=== PATIENT | male | born 1960 | race African-American/Black ===

== ENCOUNTER 2021-09-11 09:06 | Inpatient (IN) | payer OTHER ==
[2021-09-11] MEDS ORDERED: NICOTINE 10 MG CARTRIDGE (INHALER) IH PRN (09:27)
[2021-09-11] MEDS ORDERED: BISMUTH SUBSALICYLATE 524 MG/30 ML PO PRN (09:27)
[2021-09-11] MEDS ORDERED: ONDANSETRON *ODT* 4 MG TABLET SL PRN (09:27)
[2021-09-11] MEDS ORDERED: MAGNESIUM HYDROX 2400MG/30ML ORAL SUSPENSION 30 ML CUP PO PRN (09:27)
[2021-09-11] MEDS ORDERED: MENTHOL/PHENOL 1 EACH UD MM PRN (09:27)
[2021-09-11] MEDS ORDERED: IBUPROFEN 400 MG TABLET (FP) PO PRN (09:27)
[2021-09-11] MEDS ORDERED: METHOCARBAMOL 500 MG TABLET PO PRN (09:27)
[2021-09-11] MEDS ORDERED: ACETAMINOPHEN 325 MG TABLET (FP) PO PRN ×2 (09:27)
[2021-09-11] MEDS ORDERED: MAGNESIUM CITRATE 300 ML BOTTLE PO PRN (09:27)
[2021-09-11] MEDS ORDERED: MAG HYDROX/AL HYDROX/SIMETH 30 ML UNIT-DOSE CUP PO PRN (09:27)
[2021-09-11 09:45] VITALS: BMI 17.0
[2021-09-11] MEDS ORDERED: TRIAMCINOLONE ACETONIDE TP PRN (09:57)
[2021-09-11] MEDS ORDERED: AZITHROMYCIN 600 MG TABLET PO SCH (10:30)
[2021-09-11] MEDS ORDERED: EMTRICITABINE 200MG/TENOFOVIR 300MG PO SCH (11:00)
[2021-09-11] MEDS ORDERED: DARUNAVIR ETHANOLATE 800 MG TAB PO SCH (11:00)
[2021-09-11] MEDS ORDERED: RITONAVIR 100 MG TABLET PO SCH (11:00)
[2021-09-11] MEDS: SULFAMETHOXAZOLE/TRIMETHOPRIM 800MG/160MG D.S. TABLET PO SCH (12:19)
[2021-09-11] MEDS: hydrOXYzine PAMOATE 25 MG CAPSULE (FP) PO SCH ×4 (12:19→22:11)
[2021-09-11] MEDS: BICTEGRAV/EMTRICIT/TENOFOV (BIKTARVY) 50-200-25 MG TABLET PO SCH (12:19)
[2021-09-11] MEDS: NICOTINE 14 MG/24 HOURS TOPICAL PATCH TD SCH (12:27)
[2021-09-11] MEDS: PRENATAL VITAMINS W/ FOLIC ACID TABLET (FP) PO SCH (12:54)
[2021-09-11 14:33] LABS: HEMATOCRIT 38.6 % (35.4-49); HEMOGLOBIN 13.1 GM/dL (11.7-16.9); MCH 33.2 pg (25.7-33.7); MCHC 33.8 g/dl (32.0-35.9); MEAN CELL VOLUME 98.2 fl (80-96); MEAN PLT VOLUME 8.2 fl (7.5-11.1); PLATELET COUNT 156 10^3/uL (134-434); RBC 3.93 M/mm3 (4.00-5.60); RDW 15.1 % (11.9-15.9); WHITE BLOOD COUNT 2.9 K/mm3 (4.0-10.0)
[2021-09-11 14:34] LABS: ALBUMIN 3.5 g/dl (3.4-5.0); BLOOD UREA NITROGEN 5.9 mg/dL (7-18); CALCIUM 9.6 mg/dL (8.5-10.1)
[2021-09-11 14:37] LABS: CREATININE 0.6 mg/dL (0.55-1.3)
[2021-09-11 14:39] LABS: TOT PROT 7.6 g/dl (6.4-8.2)
[2021-09-11] MEDS: BETAMETHASONE DIPROPIONATE TP SCH ×2 (15:51→22:09)
[2021-09-11] MEDS: MELATONIN 5 MG TABLETS PO SCH (22:10)
[2021-09-11] MEDS: THIAMINE HCL 100 MG TABLET (FP) PO SCH (22:11)
[2021-09-12] MEDS: hydrOXYzine PAMOATE 25 MG CAPSULE (FP) PO SCH ×5 (06:39→22:46)
[2021-09-12] MEDS: BICTEGRAV/EMTRICIT/TENOFOV (BIKTARVY) 50-200-25 MG TABLET PO SCH (08:56)
[2021-09-12] MEDS: BETAMETHASONE DIPROPIONATE TP SCH ×2 (11:05→22:45)
[2021-09-12] MEDS: NICOTINE 14 MG/24 HOURS TOPICAL PATCH TD SCH (11:05)
[2021-09-12] MEDS: SULFAMETHOXAZOLE/TRIMETHOPRIM 800MG/160MG D.S. TABLET PO SCH (11:05)
[2021-09-12] MEDS: PRENATAL VITAMINS W/ FOLIC ACID TABLET (FP) PO SCH (11:06)
[2021-09-12] MEDS ORDERED: POTASSIUM CHLORIDE TABS 20 MEQ TABLET.ER (FP) PO ONE (15:00)
[2021-09-12] MEDS: MELATONIN 5 MG TABLETS PO SCH (22:45)
[2021-09-12] MEDS: THIAMINE HCL 100 MG TABLET (FP) PO SCH (22:46)
[2021-09-13] MEDS: hydrOXYzine PAMOATE 25 MG CAPSULE (FP) PO SCH ×3 (06:27→13:52)
[2021-09-13] MEDS: BICTEGRAV/EMTRICIT/TENOFOV (BIKTARVY) 50-200-25 MG TABLET PO SCH (10:31)
[2021-09-13] MEDS: SULFAMETHOXAZOLE/TRIMETHOPRIM 800MG/160MG D.S. TABLET PO SCH (10:31)
[2021-09-13] MEDS: NICOTINE 14 MG/24 HOURS TOPICAL PATCH TD SCH (10:31)
[2021-09-13] MEDS: PRENATAL VITAMINS W/ FOLIC ACID TABLET (FP) PO SCH (10:31)
[2021-09-13] MEDS: BETAMETHASONE DIPROPIONATE TP SCH (10:32)
[2021-09-13 13:57] VITALS: TEMP 97.7
[2021-09-13 17:16] VITALS: BP 133/86; PULSE 77
== END 2021-09-13 17:45 | disposition home or self-care (01) | DRG 775 ==
LOC: YASAS 09:06 → Y6N 11:53
PROVIDERS: ADMIT Allergy & Immunology; ATTEND Allergy & Immunology
PROC: HZ2ZZZZ Detoxification Services for Substance Abuse Treatment (ICD-10-PCS; principal; 2021-09-11)
DX: F10.230 Alcohol dependence with withdrawal, uncomplicated (principal); F13.230 Sedative, hypnotic or anxiolytic dependence with withdrawal, uncomplicated; F12.20 Cannabis dependence, uncomplicated; F17.213 Nicotine dependence, cigarettes, with withdrawal; Z21 Asymptomatic human immunodeficiency virus [HIV] infection status; E87.6 Hypokalemia; L30.8 Other specified dermatitis; B36.9 Superficial mycosis, unspecified; R63.4 Abnormal weight loss; Z68.1 Body mass index [BMI] 19.9 or less, adult; Z86.11 Personal history of tuberculosis; Z99.89 Dependence on other enabling machines and devices
CPT/HCPCS: 36415; 80053; 84132; 85027; 86593; 86780; C9803; U0003; U0005

== ENCOUNTER 2021-11-10 11:08 | Inpatient (IN) | payer OTHER ==
[2021-11-10] MEDS ORDERED: METHOCARBAMOL 500 MG TABLET PO PRN (12:27)
[2021-11-10] MEDS ORDERED: LORazepam 1 MG TABLET PO PRN (12:27)
[2021-11-10] MEDS ORDERED: LOPERAMIDE HCL 2 MG CAPSULE PO PRN (12:27)
[2021-11-10] MEDS ORDERED: MENTHOL/PHENOL 1 EACH UD MM PRN (12:27)
[2021-11-10] MEDS ORDERED: IBUPROFEN 400 MG TABLET (FP) PO PRN (12:27)
[2021-11-10] MEDS ORDERED: MAGNESIUM CITRATE 300 ML BOTTLE PO PRN (12:27)
[2021-11-10] MEDS ORDERED: ACETAMINOPHEN 325 MG TABLET (FP) PO PRN ×2 (12:27)
[2021-11-10] MEDS ORDERED: BISMUTH SUBSALICYLATE 524 MG/30 ML PO PRN (12:27)
[2021-11-10] MEDS ORDERED: NICOTINE 10 MG CARTRIDGE (INHALER) IH PRN (12:27)
[2021-11-10] MEDS ORDERED: MAGNESIUM HYDROX 2400MG/30ML ORAL SUSPENSION 30 ML CUP PO PRN (12:27)
[2021-11-10] MEDS ORDERED: ONDANSETRON *ODT* 4 MG TABLET SL PRN (12:27)
[2021-11-10] MEDS ORDERED: MAG HYDROX/AL HYDROX/SIMETH 30 ML UNIT-DOSE CUP PO PRN (12:27)
[2021-11-10 14:04] VITALS: BMI 17.2
[2021-11-10 17:59] LABS: HEMATOCRIT 35.8 % (35.4-49); HEMOGLOBIN 11.9 GM/dL (11.7-16.9); MCH 31.6 pg (25.7-33.7); MCHC 33.2 g/dl (32.0-35.9); MEAN CELL VOLUME 95.1 fl (80-96); MEAN PLT VOLUME 8.2 fl (7.5-11.1); PLATELET COUNT 173 10^3/uL (134-434); RBC 3.76 M/mm3 (4.00-5.60); RDW 14.8 % (11.9-15.9)
[2021-11-10 18:03] LABS: CALCIUM 9.4 mg/dL (8.5-10.1)
[2021-11-10 18:04] LABS: ALBUMIN 3.4 g/dl (3.4-5.0); BLOOD UREA NITROGEN 7.7 mg/dL (7-18)
[2021-11-10 18:07] LABS: CREATININE 0.5 mg/dL (0.55-1.3)
[2021-11-10 18:08] LABS: BILIRUBIN,TOTAL 0.5 mg/dL (0.2-1)
[2021-11-10 18:09] LABS: TOT PROT 7.7 g/dl (6.4-8.2)
[2021-11-10] MEDS ORDERED: guaiFENesin/D-METHORPHAN HB 10 ML UNIT-DOSE CUPS PO PRN (18:20)
[2021-11-10] MEDS: LORazepam 2 MG TABLET PO SCH ×2 (18:21→22:51)
[2021-11-10] MEDS: hydrOXYzine PAMOATE 25 MG CAPSULE (FP) PO SCH ×3 (18:22→23:03)
[2021-11-10] MEDS: NICOTINE 14 MG/24 HOURS TOPICAL PATCH TD SCH (18:25)
[2021-11-10] MEDS: PRENATAL VITAMINS W/ FOLIC ACID TABLET (FP) PO SCH (18:25)
[2021-11-10] MEDS: ZINC SULFATE 220 MG CAPSULE (FP) PO SCH (22:59)
[2021-11-10] MEDS: MELATONIN 5 MG TABLETS PO SCH (23:03)
[2021-11-10] MEDS: THIAMINE HCL 100 MG TABLET (FP) PO SCH (23:04)
[2021-11-11] MEDS: hydrOXYzine PAMOATE 25 MG CAPSULE (FP) PO SCH ×5 (06:54→23:04)
[2021-11-11] MEDS: LORazepam 2 MG TABLET PO SCH ×4 (06:54→23:02)
[2021-11-11] MEDS: ZINC SULFATE 220 MG CAPSULE (FP) PO SCH (10:52)
[2021-11-11] MEDS: PRENATAL VITAMINS W/ FOLIC ACID TABLET (FP) PO SCH (10:52)
[2021-11-11] MEDS: NICOTINE 14 MG/24 HOURS TOPICAL PATCH TD SCH (10:53)
[2021-11-11] MEDS ORDERED: P-EPHED 60MG/TRIPROLIDI 2.5MG TABLET PO PRN (18:35)
[2021-11-11] MEDS: guaiFENesin 200 MG/10 ML 10 ML UNIT-DOSE CUPS PO PRN ×2 (18:57→23:04)
[2021-11-11] MEDS: MELATONIN 5 MG TABLETS PO SCH (23:03)
[2021-11-11] MEDS: THIAMINE HCL 100 MG TABLET (FP) PO SCH (23:04)
[2021-11-12] MEDS: LORazepam 1 MG TABLET PO SCH ×2 (06:45→10:59)
[2021-11-12] MEDS: hydrOXYzine PAMOATE 25 MG CAPSULE (FP) PO SCH ×3 (06:45→15:11)
[2021-11-12 08:06] LABS: SARS-CoV-2 NAA Detected (Not Detected)
[2021-11-12 08:37] VITALS: TEMP 98.3
[2021-11-12] MEDS: ZINC SULFATE 220 MG CAPSULE (FP) PO SCH (10:56)
[2021-11-12] MEDS: PRENATAL VITAMINS W/ FOLIC ACID TABLET (FP) PO SCH (10:56)
[2021-11-12] MEDS: NICOTINE 14 MG/24 HOURS TOPICAL PATCH TD SCH (10:58)
[2021-11-12 13:21] VITALS: BP 124/68; PULSE 70
[2021-11-13] MEDS ORDERED: LORazepam 0.5 MG TABLET PO PRN
[2021-11-13] MEDS ORDERED: LORazepam 0.5 MG TABLET PO SCH (05:00)
[2021-11-14] MEDS ORDERED: LORazepam 0.5 MG TABLET PO ONE (05:00)
== END 2021-11-12 16:45 | disposition left against medical advice (07) | DRG 770 ==
LOC: YASAS 11:08 → Y3N 14:33
PROVIDERS: ADMIT Allergy & Immunology; ATTEND Allergy & Immunology
PROC: HZ2ZZZZ Detoxification Services for Substance Abuse Treatment (ICD-10-PCS; principal; 2021-11-12)
DX: F10.230 Alcohol dependence with withdrawal, uncomplicated (principal); F12.20 Cannabis dependence, uncomplicated; F17.210 Nicotine dependence, cigarettes, uncomplicated; F19.24 Other psychoactive substance dependence with psychoactive substance-induced mood disorder; U07.1 COVID-19; Z21 Asymptomatic human immunodeficiency virus [HIV] infection status
CPT/HCPCS: 36415; 80053; 82947; 82962; 85027; 86593; 86780; C9803-CS; U0003; U0005

== ENCOUNTER 2021-12-08 12:49 | Inpatient (IN) | payer OTHER ==
[2021-12-08] MEDS ORDERED: MAG HYDROX/AL HYDROX/SIMETH 30 ML UNIT-DOSE CUP PO PRN (13:20)
[2021-12-08] MEDS ORDERED: LOPERAMIDE HCL 2 MG CAPSULE PO PRN (13:20)
[2021-12-08] MEDS ORDERED: ACETAMINOPHEN 325 MG TABLET (FP) PO PRN ×2 (13:20)
[2021-12-08] MEDS ORDERED: BISMUTH SUBSALICYLATE 262 MG/15 ML BTL PO PRN (13:20)
[2021-12-08] MEDS ORDERED: DICYCLOMINE HCL 10 MG CAPSULE PO PRN (13:20)
[2021-12-08] MEDS ORDERED: BENZOCAINE/MENTHOL (CHLORASEPTIC ) LOZENGE MM PRN (13:20)
[2021-12-08] MEDS ORDERED: METHOCARBAMOL 500 MG TABLET PO PRN (13:20)
[2021-12-08] MEDS ORDERED: NICOTINE 10 MG CARTRIDGE (INHALER) IH PRN (13:20)
[2021-12-08] MEDS ORDERED: MAGNESIUM CITRATE 300 ML BOTTLE PO PRN (13:20)
[2021-12-08] MEDS ORDERED: IBUPROFEN 400 MG TABLET (FP) PO PRN (13:20)
[2021-12-08] MEDS ORDERED: diazePAM 5 MG TABLET PO PRN (13:20)
[2021-12-08] MEDS ORDERED: ONDANSETRON *ODT* 4 MG TABLET SL PRN (13:20)
[2021-12-08] MEDS ORDERED: MAGNESIUM HYDROX 2400MG/30ML ORAL SUSPENSION 30 ML CUP PO PRN (13:20)
[2021-12-08 14:10] VITALS: BMI 17.2
[2021-12-08 17:09] LABS: ALBUMIN 3.3 g/dl (3.4-5.0); BLOOD UREA NITROGEN 10.1 mg/dL (7-18); CALCIUM 8.9 mg/dL (8.5-10.1)
[2021-12-08 17:12] LABS: CREATININE 0.6 mg/dL (0.55-1.3); HEMATOCRIT 37.7 % (35.4-49); HEMOGLOBIN 12.4 GM/dL (11.7-16.9); MCH 31.5 pg (25.7-33.7); MEAN CELL VOLUME 95.6 fl (80-96); MEAN PLT VOLUME 8.5 fl (7.5-11.1); PLATELET COUNT 200 10^3/uL (134-434); RBC 3.94 M/mm3 (4.00-5.60); RDW 16.3 % (11.9-15.9); WHITE BLOOD COUNT 2.2 K/mm3 (4.0-10.0)
[2021-12-08 17:14] LABS: BILIRUBIN,TOTAL 0.6 mg/dL (0.2-1); TOT PROT 7.8 g/dl (6.4-8.2)
[2021-12-08] MEDS: diazePAM 5 MG TABLET PO SCH ×2 (20:36→22:32)
[2021-12-08] MEDS: PRENATAL VITAMINS W/ FOLIC ACID TABLET (FP) PO SCH (20:36)
[2021-12-08] MEDS: NICOTINE 14 MG/24 HOURS TOPICAL PATCH TD SCH (20:36)
[2021-12-08] MEDS: hydrOXYzine PAMOATE 25 MG CAPSULE (FP) PO SCH ×2 (20:37→22:31)
[2021-12-08] MEDS: MELATONIN 5 MG TABLETS PO SCH (22:31)
[2021-12-08] MEDS: THIAMINE HCL 100 MG TABLET (FP) PO SCH (22:33)
[2021-12-09] MEDS: diazePAM 5 MG TABLET PO SCH ×4 (06:33→22:49)
[2021-12-09] MEDS: hydrOXYzine PAMOATE 25 MG CAPSULE (FP) PO SCH ×5 (06:33→22:49)
[2021-12-09] MEDS: PRENATAL VITAMINS W/ FOLIC ACID TABLET (FP) PO SCH (12:19)
[2021-12-09] MEDS: NICOTINE 14 MG/24 HOURS TOPICAL PATCH TD SCH (12:19)
[2021-12-09] MEDS: MELATONIN 5 MG TABLETS PO SCH (22:49)
[2021-12-09] MEDS: THIAMINE HCL 100 MG TABLET (FP) PO SCH (22:49)
[2021-12-09] MEDS: BACITRACIN 0.9 GM PACKET TP SCH (23:08)
[2021-12-10] MEDS: diazePAM 5 MG TABLET PO SCH ×3 (07:04→22:56)
[2021-12-10] MEDS: hydrOXYzine PAMOATE 25 MG CAPSULE (FP) PO SCH ×6 (07:05→22:56)
[2021-12-10] MEDS: NICOTINE 14 MG/24 HOURS TOPICAL PATCH TD SCH (11:05)
[2021-12-10] MEDS: BACITRACIN 0.9 GM PACKET TP SCH ×3 (11:05→22:56)
[2021-12-10] MEDS: PRENATAL VITAMINS W/ FOLIC ACID TABLET (FP) PO SCH ×2 (11:05→11:14)
[2021-12-10 16:08] LABS: SARS-CoV-2 NAA Detected (Not Detected)
[2021-12-10] MEDS: MELATONIN 5 MG TABLETS PO SCH (22:56)
[2021-12-10] MEDS: THIAMINE HCL 100 MG TABLET (FP) PO SCH (22:56)
[2021-12-11] MEDS: diazePAM 5 MG TABLET PO SCH ×2 (08:39→17:43)
[2021-12-11] MEDS: hydrOXYzine PAMOATE 25 MG CAPSULE (FP) PO SCH ×5 (08:39→22:32)
[2021-12-11] MEDS: NICOTINE 14 MG/24 HOURS TOPICAL PATCH TD SCH (11:02)
[2021-12-11] MEDS: BACITRACIN 0.9 GM PACKET TP SCH ×2 (11:02→22:32)
[2021-12-11] MEDS: PRENATAL VITAMINS W/ FOLIC ACID TABLET (FP) PO SCH (11:03)
[2021-12-11] MEDS: MELATONIN 5 MG TABLETS PO SCH (22:32)
[2021-12-11] MEDS: THIAMINE HCL 100 MG TABLET (FP) PO SCH (22:32)
[2021-12-12] MEDS ORDERED: diazePAM 5 MG TABLET PO ONE (06:00)
[2021-12-12] MEDS: hydrOXYzine PAMOATE 25 MG CAPSULE (FP) PO SCH ×3 (07:05→15:03)
[2021-12-12 09:12] VITALS: BP 106/71; PULSE 94; TEMP 97.3
[2021-12-12] MEDS: BACITRACIN 0.9 GM PACKET TP SCH (12:04)
[2021-12-12] MEDS: NICOTINE 14 MG/24 HOURS TOPICAL PATCH TD SCH (12:05)
[2021-12-12] MEDS: PRENATAL VITAMINS W/ FOLIC ACID TABLET (FP) PO SCH (12:05)
== END 2021-12-12 15:00 | disposition home or self-care (01) | DRG 775 ==
LOC: YASAS 12:49 → Y3N 16:56
PROVIDERS: ADMIT Allergy & Immunology; ATTEND Allergy & Immunology
PROC: HZ2ZZZZ Detoxification Services for Substance Abuse Treatment (ICD-10-PCS; principal; 2021-12-08)
DX: F10.230 Alcohol dependence with withdrawal, uncomplicated (principal); F13.20 Sedative, hypnotic or anxiolytic dependence, uncomplicated; F12.20 Cannabis dependence, uncomplicated; F17.210 Nicotine dependence, cigarettes, uncomplicated; U07.1 COVID-19; Z21 Asymptomatic human immunodeficiency virus [HIV] infection status; Z86.19 Personal history of other infectious and parasitic diseases
CPT/HCPCS: 36415; 80053; 85027; 86593; 86780; 87811; C9803-CS; U0003; U0005

== ENCOUNTER 2022-03-15 10:00 | Inpatient (IN) | payer OTHER ==
[2022-03-15 11:25] VITALS: BMI 19.5
[2022-03-15] MEDS ORDERED: BENZOCAINE/MENTHOL (CHLORASEPTIC ) LOZENGE MM PRN (12:25)
[2022-03-15] MEDS ORDERED: MAGNESIUM CITRATE 300 ML BOTTLE PO PRN (12:25)
[2022-03-15] MEDS ORDERED: diazePAM 5 MG TABLET PO PRN (12:25)
[2022-03-15] MEDS ORDERED: METHOCARBAMOL 500 MG TABLET PO PRN (12:25)
[2022-03-15] MEDS ORDERED: ONDANSETRON *ODT* 4 MG TABLET SL PRN (12:25)
[2022-03-15] MEDS ORDERED: IBUPROFEN 600 MG TABLET (FP) PO PRN (12:25)
[2022-03-15] MEDS ORDERED: MAG HYDROX/AL HYDROX/SIMETH 30 ML UNIT-DOSE CUP PO PRN (12:25)
[2022-03-15] MEDS ORDERED: NICOTINE 10 MG CARTRIDGE (INHALER) IH PRN (12:25)
[2022-03-15] MEDS ORDERED: BISMUTH SUBSALICYLATE 262 MG/15 ML BTL PO PRN (12:25)
[2022-03-15] MEDS ORDERED: DICYCLOMINE HCL 10 MG CAPSULE PO PRN (12:25)
[2022-03-15] MEDS ORDERED: MAGNESIUM HYDROX 2400MG/30ML ORAL SUSPENSION 30 ML CUP PO PRN (12:25)
[2022-03-15] MEDS ORDERED: LOPERAMIDE HCL 2 MG CAPSULE PO PRN (12:25)
[2022-03-15] MEDS ORDERED: ACETAMINOPHEN 325 MG TABLET (FP) PO PRN ×2 (12:25)
[2022-03-15] MEDS ORDERED: IBUPROFEN 400 MG TABLET (FP) PO PRN (12:25)
[2022-03-15] MEDS: PRENATAL VITAMINS W/ FOLIC ACID TABLET (FP) PO SCH (14:03)
[2022-03-15] MEDS: NICOTINE 14 MG/24 HOURS TOPICAL PATCH TD SCH (14:03)
[2022-03-15] MEDS: hydrOXYzine PAMOATE 25 MG CAPSULE (FP) PO SCH ×3 (14:08→23:13)
[2022-03-15 17:05] LABS: HEMATOCRIT 36.9 % (35.4-49); HEMOGLOBIN 12.2 GM/dL (11.7-16.9); MCH 32.6 pg (25.7-33.7); MCHC 33.2 g/dl (32.0-35.9); MEAN CELL VOLUME 98.2 fl (80-96); PLATELET COUNT 188 10^3/uL (134-434); RBC 3.75 M/mm3 (4.00-5.60); RDW 16.8 % (11.9-15.9); WHITE BLOOD COUNT 3.7 K/mm3 (4.0-10.0)
[2022-03-15 17:09] LABS: BLOOD UREA NITROGEN 9.6 mg/dL (7-18); CALCIUM 9.9 mg/dL (8.5-10.1)
[2022-03-15 17:10] LABS: ALBUMIN 3.5 g/dl (3.4-5.0)
[2022-03-15 17:13] LABS: CREATININE 0.7 mg/dL (0.55-1.3)
[2022-03-15 17:14] LABS: BILIRUBIN,TOTAL 0.5 mg/dL (0.2-1); TOT PROT 7.6 g/dl (6.4-8.2)
[2022-03-15] MEDS: diazePAM 5 MG TABLET PO SCH ×2 (17:43→23:13)
[2022-03-15] MEDS: MELATONIN 5 MG TABLETS PO SCH (23:13)
[2022-03-15] MEDS: THIAMINE HCL 100 MG TABLET (FP) PO SCH (23:14)
[2022-03-16] MEDS: diazePAM 5 MG TABLET PO SCH ×4 (05:41→23:32)
[2022-03-16] MEDS: hydrOXYzine PAMOATE 25 MG CAPSULE (FP) PO SCH ×5 (05:41→23:33)
[2022-03-16] MEDS: NICOTINE 14 MG/24 HOURS TOPICAL PATCH TD SCH (10:30)
[2022-03-16] MEDS: PRENATAL VITAMINS W/ FOLIC ACID TABLET (FP) PO SCH (10:30)
[2022-03-16] MEDS: MELATONIN 5 MG TABLETS PO SCH (23:32)
[2022-03-16] MEDS: THIAMINE HCL 100 MG TABLET (FP) PO SCH (23:33)
[2022-03-17] MEDS: hydrOXYzine PAMOATE 25 MG CAPSULE (FP) PO SCH ×4 (06:16→21:22)
[2022-03-17] MEDS: diazePAM 5 MG TABLET PO SCH ×2 (06:16→13:45)
[2022-03-17] MEDS: NICOTINE 14 MG/24 HOURS TOPICAL PATCH TD SCH (10:32)
[2022-03-17] MEDS: PRENATAL VITAMINS W/ FOLIC ACID TABLET (FP) PO SCH (10:32)
[2022-03-18] MEDS: MELATONIN 5 MG TABLETS PO SCH ×2 (00:22→22:28)
[2022-03-18] MEDS: THIAMINE HCL 100 MG TABLET (FP) PO SCH ×2 (00:23→22:28)
[2022-03-18] MEDS: diazePAM 5 MG TABLET PO SCH ×3 (00:23→17:31)
[2022-03-18] MEDS: hydrOXYzine PAMOATE 25 MG CAPSULE (FP) PO SCH ×6 (00:23→22:28)
[2022-03-18] MEDS: PRENATAL VITAMINS W/ FOLIC ACID TABLET (FP) PO SCH (10:27)
[2022-03-18] MEDS: NICOTINE 14 MG/24 HOURS TOPICAL PATCH TD SCH (10:29)
[2022-03-18 21:37] VITALS: RESP 17
[2022-03-19] MEDS ORDERED: diazePAM 5 MG TABLET PO ONE (06:00)
[2022-03-19] MEDS: hydrOXYzine PAMOATE 25 MG CAPSULE (FP) PO SCH ×2 (06:11→10:26)
[2022-03-19 09:11] VITALS: TEMP 97.1
[2022-03-19] MEDS: PRENATAL VITAMINS W/ FOLIC ACID TABLET (FP) PO SCH (10:26)
[2022-03-19] MEDS: NICOTINE 14 MG/24 HOURS TOPICAL PATCH TD SCH (10:26)
[2022-03-19 12:59] VITALS: BP 92/65; PULSE 73
== END 2022-03-19 13:00 | disposition home or self-care (01) | DRG 772 ==
LOC: YASAS 10:00 → Y6N 13:33
PROVIDERS: ADMIT Allergy & Immunology; ATTEND Surgery
PROC: HZ42ZZZ Group Counseling for Substance Abuse Treatment, Cognitive-Behavioral (ICD-10-PCS; principal; 2022-03-15)
DX: F10.20 Alcohol dependence, uncomplicated (principal); F12.20 Cannabis dependence, uncomplicated; F17.210 Nicotine dependence, cigarettes, uncomplicated; Z21 Asymptomatic human immunodeficiency virus [HIV] infection status; R26.2 Difficulty in walking, not elsewhere classified; Z99.89 Dependence on other enabling machines and devices; Z86.19 Personal history of other infectious and parasitic diseases
CPT/HCPCS: 36415; 80053; 85027; 86593; 86780; 87811; C9803-CS; U0003; U0005

== ENCOUNTER 2022-03-19 13:17 | Inpatient (IN) | payer OTHER ==
[2022-03-19 13:38] VITALS: RESP 18
[2022-03-19] MEDS ORDERED: NICOTINE 7 MG/24 HOURS TOPICAL PATCH TD PRN (13:52)
[2022-03-19] MEDS ORDERED: guaiFENesin 200 MG/10 ML 10 ML UNIT-DOSE CUPS PO PRN (13:52)
[2022-03-19] MEDS ORDERED: hydrOXYzine PAMOATE 25 MG CAPSULE (FP) PO PRN (13:52)
[2022-03-19] MEDS ORDERED: MAGNESIUM CITRATE 300 ML BOTTLE PO PRN (13:52)
[2022-03-19] MEDS ORDERED: ACETAMINOPHEN 325 MG TABLET (FP) PO PRN (13:52)
[2022-03-19] MEDS ORDERED: NICOTINE 10 MG CARTRIDGE (INHALER) IH PRN (13:52)
[2022-03-19] MEDS ORDERED: MAG HYDROX/AL HYDROX/SIMETH 30 ML UNIT-DOSE CUP PO PRN (13:52)
[2022-03-19] MEDS ORDERED: BENZOCAINE/MENTHOL (CHLORASEPTIC ) LOZENGE MM PRN (13:52)
[2022-03-19] MEDS ORDERED: MAGNESIUM HYDROX 2400MG/30ML ORAL SUSPENSION 30 ML CUP PO PRN (13:52)
[2022-03-19] MEDS ORDERED: P-EPHED 60MG/TRIPROLIDI 2.5MG TABLET PO PRN (13:52)
[2022-03-19] MEDS ORDERED: IBUPROFEN 400 MG TABLET (FP) PO PRN (13:52)
[2022-03-19] MEDS ORDERED: LOPERAMIDE HCL 2 MG CAPSULE PO PRN (13:52)
[2022-03-19] MEDS ORDERED: NICOTINE POLACRILEX 2 MG GUM BUC PRN (13:52)
[2022-03-19] MEDS ORDERED: THIAMINE HCL 100 MG TABLET (FP) PO SCH (22:00)
[2022-03-19] MEDS ORDERED: MELATONIN 5 MG TABLETS PO SCH (22:00)
[2022-03-20 06:58] VITALS: BP 114/76; PULSE 81; TEMP 97.5
[2022-03-20] MEDS ORDERED: PRENATAL VITAMINS W/ FOLIC ACID TABLET (FP) PO SCH (10:00)
== END 2022-03-20 10:23 | disposition left against medical advice (07) | DRG 770 ==
LOC: YASAS 13:17 → Y3W 13:18
PROVIDERS: ADMIT Allergy & Immunology; ATTEND Psychiatry & Neurology Pain Medicine
PROC: HZ42ZZZ Group Counseling for Substance Abuse Treatment, Cognitive-Behavioral (ICD-10-PCS; principal; 2022-03-19)
DX: F10.20 Alcohol dependence, uncomplicated (principal); F12.20 Cannabis dependence, uncomplicated; F17.210 Nicotine dependence, cigarettes, uncomplicated; Z21 Asymptomatic human immunodeficiency virus [HIV] infection status; R26.2 Difficulty in walking, not elsewhere classified; Z99.89 Dependence on other enabling machines and devices; Z86.19 Personal history of other infectious and parasitic diseases

== ENCOUNTER 2022-03-31 09:40 | Inpatient (IN) | payer OTHER ==
[2022-03-31 10:14] VITALS: BMI 18.4
[2022-03-31] MEDS ORDERED: NICOTINE 10 MG CARTRIDGE (INHALER) IH PRN (11:12)
[2022-03-31] MEDS ORDERED: MAGNESIUM HYDROX 2400MG/30ML ORAL SUSPENSION 30 ML CUP PO PRN (11:12)
[2022-03-31] MEDS ORDERED: chlordiazePOXIDE HCL 25 MG CAPSULE PO PRN (11:12)
[2022-03-31] MEDS ORDERED: IBUPROFEN 600 MG TABLET (FP) PO PRN (11:12)
[2022-03-31] MEDS ORDERED: BENZOCAINE/MENTHOL (CHLORASEPTIC ) LOZENGE MM PRN (11:12)
[2022-03-31] MEDS ORDERED: MAGNESIUM CITRATE 300 ML BOTTLE PO PRN (11:12)
[2022-03-31] MEDS ORDERED: DICYCLOMINE HCL 10 MG CAPSULE PO PRN (11:12)
[2022-03-31] MEDS ORDERED: METHOCARBAMOL 500 MG TABLET PO PRN (11:12)
[2022-03-31] MEDS ORDERED: ACETAMINOPHEN 325 MG TABLET (FP) PO PRN ×2 (11:12)
[2022-03-31] MEDS ORDERED: MAG HYDROX/AL HYDROX/SIMETH 30 ML UNIT-DOSE CUP PO PRN (11:12)
[2022-03-31] MEDS ORDERED: LOPERAMIDE HCL 2 MG CAPSULE PO PRN (11:12)
[2022-03-31] MEDS ORDERED: ONDANSETRON *ODT* 4 MG TABLET SL PRN (11:12)
[2022-03-31] MEDS ORDERED: BISMUTH SUBSALICYLATE 262 MG/15 ML BTL PO PRN (11:12)
[2022-03-31] MEDS ORDERED: IBUPROFEN 400 MG TABLET (FP) PO PRN (11:12)
[2022-03-31] MEDS: chlordiazePOXIDE HCL 25 MG CAPSULE PO SCH ×3 (12:38→23:22)
[2022-03-31] MEDS: NICOTINE 14 MG/24 HOURS TOPICAL PATCH TD SCH (12:38)
[2022-03-31] MEDS: PRENATAL VITAMINS W/ FOLIC ACID TABLET (FP) PO SCH (12:38)
[2022-03-31] MEDS: hydrOXYzine PAMOATE 25 MG CAPSULE (FP) PO SCH ×3 (14:00→23:23)
[2022-03-31 15:09] LABS: HEMATOCRIT 36.5 % (35.4-49); HEMOGLOBIN 12.3 GM/dL (11.7-16.9); MCHC 33.7 g/dl (32.0-35.9); MEAN CELL VOLUME 94.8 fl (80-96); MEAN PLT VOLUME 8.1 fl (7.5-11.1); PLATELET COUNT 263 10^3/uL (134-434); RBC 3.85 M/mm3 (4.00-5.60); RDW 16.5 % (11.9-15.9)
[2022-03-31 15:34] LABS: ALBUMIN 3.5 g/dl (3.4-5.0); BLOOD UREA NITROGEN 10.7 mg/dL (7-18); CALCIUM 9.8 mg/dL (8.5-10.1)
[2022-03-31 15:38] LABS: CREATININE 0.7 mg/dL (0.55-1.3)
[2022-03-31 15:39] LABS: BILIRUBIN,TOTAL 0.7 mg/dL (0.2-1); TOT PROT 7.8 g/dl (6.4-8.2)
[2022-03-31] MEDS: MELATONIN 5 MG TABLETS PO SCH (23:22)
[2022-03-31] MEDS: THIAMINE HCL 100 MG TABLET (FP) PO SCH (23:23)
[2022-04-01] MEDS: chlordiazePOXIDE HCL 25 MG CAPSULE PO SCH ×4 (06:18→22:46)
[2022-04-01] MEDS: hydrOXYzine PAMOATE 25 MG CAPSULE (FP) PO SCH ×5 (06:18→22:46)
[2022-04-01] MEDS: POTASSIUM CHLORIDE ORAL LIQUID 20 MEQ/15 ML PO SCH ×2 (10:54→22:46)
[2022-04-01] MEDS: NICOTINE 14 MG/24 HOURS TOPICAL PATCH TD SCH (10:54)
[2022-04-01] MEDS: PRENATAL VITAMINS W/ FOLIC ACID TABLET (FP) PO SCH (10:54)
[2022-04-01] MEDS: MELATONIN 5 MG TABLETS PO SCH (22:46)
[2022-04-01] MEDS: THIAMINE HCL 100 MG TABLET (FP) PO SCH (22:46)
[2022-04-02] MEDS: hydrOXYzine PAMOATE 25 MG CAPSULE (FP) PO SCH ×2 (06:50→11:32)
[2022-04-02] MEDS: chlordiazePOXIDE HCL 25 MG CAPSULE PO SCH ×2 (06:50→11:25)
[2022-04-02 10:23] VITALS: BP 109/59; PULSE 66; RESP 16; TEMP 98.4
[2022-04-02] MEDS: PRENATAL VITAMINS W/ FOLIC ACID TABLET (FP) PO SCH (11:25)
[2022-04-02] MEDS: NICOTINE 14 MG/24 HOURS TOPICAL PATCH TD SCH (11:25)
[2022-04-02] MEDS: POTASSIUM CHLORIDE ORAL LIQUID 20 MEQ/15 ML PO SCH (11:26)
[2022-04-03] MEDS ORDERED: chlordiazePOXIDE HCL 10 MG CAPSULE PO PRN
[2022-04-03] MEDS ORDERED: chlordiazePOXIDE HCL 10 MG CAPSULE PO SCH (05:00)
[2022-04-04] MEDS ORDERED: chlordiazePOXIDE HCL 10 MG CAPSULE PO SCH (05:00)
[2022-04-05] MEDS ORDERED: chlordiazePOXIDE HCL 10 MG CAPSULE PO ONE (05:00)
== END 2022-04-02 12:45 | disposition home or self-care (01) | DRG 774 ==
LOC: SUATTDRO 09:40 → YASAS 09:40 → Y3N 10:46
PROVIDERS: ADMIT Allergy & Immunology; ATTEND Surgery
PROC: HZ2ZZZZ Detoxification Services for Substance Abuse Treatment (ICD-10-PCS; principal; 2022-03-31)
DX: F10.230 Alcohol dependence with withdrawal, uncomplicated (principal); F14.20 Cocaine dependence, uncomplicated; F12.20 Cannabis dependence, uncomplicated; F17.210 Nicotine dependence, cigarettes, uncomplicated; F32.A Depression, unspecified; Z21 Asymptomatic human immunodeficiency virus [HIV] infection status; L40.9 Psoriasis, unspecified; Z20.822 Contact with and (suspected) exposure to COVID-19; R63.4 Abnormal weight loss; Z68.1 Body mass index [BMI] 19.9 or less, adult; Z86.19 Personal history of other infectious and parasitic diseases; Z99.89 Dependence on other enabling machines and devices
CPT/HCPCS: 36415; 80053; 82947; 84132; 85027; 86593; 86780; 87811; C9803-CS; U0003; U0005

== ENCOUNTER 2022-05-01 09:08 | Inpatient (IN) | payer OTHER ==
[2022-05-01 09:54] VITALS: BMI 17.2
[2022-05-01] MEDS ORDERED: MAGNESIUM CITRATE 300 ML BOTTLE PO PRN (10:38)
[2022-05-01] MEDS ORDERED: BISMUTH SUBSALICYLATE 524 MG/30 ML PO PRN (10:38)
[2022-05-01] MEDS ORDERED: LOPERAMIDE HCL 2 MG CAPSULE PO PRN (10:38)
[2022-05-01] MEDS ORDERED: ONDANSETRON *ODT* 4 MG TABLET SL PRN (10:38)
[2022-05-01] MEDS ORDERED: NICOTINE 10 MG CARTRIDGE (INHALER) IH PRN (10:38)
[2022-05-01] MEDS ORDERED: METHOCARBAMOL 500 MG TABLET PO PRN (10:38)
[2022-05-01] MEDS ORDERED: MAGNESIUM HYDROX 2400MG/30ML ORAL SUSPENSION 30 ML CUP PO PRN (10:38)
[2022-05-01] MEDS ORDERED: MAG HYDROX/AL HYDROX/SIMETH 30 ML UNIT-DOSE CUP PO PRN (10:38)
[2022-05-01] MEDS ORDERED: chlordiazePOXIDE HCL 25 MG CAPSULE PO PRN (10:38)
[2022-05-01] MEDS ORDERED: BENZOCAINE/MENTHOL (CHLORASEPTIC ) LOZENGE MM PRN (10:38)
[2022-05-01] MEDS ORDERED: IBUPROFEN 600 MG TABLET (FP) PO PRN (10:38)
[2022-05-01] MEDS ORDERED: DICYCLOMINE HCL 10 MG CAPSULE PO PRN (10:38)
[2022-05-01] MEDS ORDERED: ACETAMINOPHEN 325 MG TABLET (FP) PO PRN ×2 (10:38)
[2022-05-01] MEDS ORDERED: IBUPROFEN 400 MG TABLET (FP) PO PRN (10:38)
[2022-05-01] MEDS ORDERED: chlordiazePOXIDE HCL 25 MG CAPSULE PO SCH (11:00)
[2022-05-01] MEDS: chlordiazePOXIDE HCL 25 MG CAPSULE PO SCH ×3 (14:41→22:40)
[2022-05-01] MEDS: hydrOXYzine PAMOATE 25 MG CAPSULE (FP) PO SCH ×3 (14:42→22:41)
[2022-05-01] MEDS: FLUOCINONIDE 0.05% CREAM (60 GM TUBE) TP SCH ×2 (14:42→22:43)
[2022-05-01] MEDS: THIAMINE HCL 100 MG TABLET (FP) PO SCH (22:41)
[2022-05-01] MEDS: MELATONIN 5 MG TABLETS PO SCH (22:45)
[2022-05-02] MEDS: hydrOXYzine PAMOATE 25 MG CAPSULE (FP) PO SCH ×2 (05:52→11:11)
[2022-05-02] MEDS: chlordiazePOXIDE HCL 25 MG CAPSULE PO SCH ×2 (05:52→11:11)
[2022-05-02] MEDS: PRENATAL VITAMINS W/ FOLIC ACID TABLET (FP) PO SCH (11:10)
[2022-05-02] MEDS: FLUOCINONIDE 0.05% CREAM (60 GM TUBE) TP SCH ×2 (11:10→22:55)
[2022-05-02] MEDS ORDERED: hydrOXYzine PAMOATE 25 MG CAPSULE (FP) PO PRN (13:51)
[2022-05-02] MEDS ORDERED: chlordiazePOXIDE HCL 25 MG CAPSULE PO SCH (17:00)
[2022-05-02] MEDS: chlordiazePOXIDE HCL 10 MG CAPSULE PO SCH ×2 (19:48→22:55)
[2022-05-02] MEDS: THIAMINE HCL 100 MG TABLET (FP) PO SCH (22:54)
[2022-05-02] MEDS: MELATONIN 5 MG TABLETS PO SCH (22:55)
[2022-05-03] MEDS ORDERED: chlordiazePOXIDE HCL 25 MG CAPSULE PO SCH (05:00)
[2022-05-03] MEDS: chlordiazePOXIDE HCL 10 MG CAPSULE PO SCH ×4 (06:11→22:37)
[2022-05-03] MEDS: FLUOCINONIDE 0.05% CREAM (60 GM TUBE) TP SCH ×2 (10:50→22:37)
[2022-05-03] MEDS: PRENATAL VITAMINS W/ FOLIC ACID TABLET (FP) PO SCH (10:50)
[2022-05-03 12:02] LABS: ALBUMIN 3.1 g/dl (3.4-5.0); BLOOD UREA NITROGEN 7.1 mg/dL (7-18); CALCIUM 9.7 mg/dL (8.5-10.1)
[2022-05-03 12:05] LABS: CREATININE 0.6 mg/dL (0.55-1.3)
[2022-05-03 12:07] LABS: TOT PROT 7.2 g/dl (6.4-8.2)
[2022-05-03 12:19] LABS: HEMATOCRIT 38.8 % (35.4-49); MCH 31.5 pg (25.7-33.7); MCHC 33.5 g/dl (32.0-35.9); MEAN CELL VOLUME 94.2 fl (80-96); MEAN PLT VOLUME 8.6 fl (7.5-11.1); PLATELET COUNT 102 10^3/uL (134-434); RBC 4.11 M/mm3 (4.00-5.60); RDW 16.1 % (11.9-15.9); WHITE BLOOD COUNT 2.6 K/mm3 (4.0-10.0)
[2022-05-03] MEDS: BICTEGRAV/EMTRICIT/TENOFOV (BIKTARVY) 50-200-25 MG TABLET PO SCH (17:21)
[2022-05-03] MEDS: THIAMINE HCL 100 MG TABLET (FP) PO SCH (22:36)
[2022-05-03] MEDS: MELATONIN 5 MG TABLETS PO SCH (22:37)
[2022-05-04] MEDS ORDERED: chlordiazePOXIDE HCL 10 MG CAPSULE PO PRN
[2022-05-04] MEDS: chlordiazePOXIDE HCL 10 MG CAPSULE PO SCH ×4 (06:37→22:04)
[2022-05-04] MEDS: BICTEGRAV/EMTRICIT/TENOFOV (BIKTARVY) 50-200-25 MG TABLET PO SCH (10:42)
[2022-05-04] MEDS: FLUOCINONIDE 0.05% CREAM (60 GM TUBE) TP SCH ×2 (10:42→23:30)
[2022-05-04] MEDS: PRENATAL VITAMINS W/ FOLIC ACID TABLET (FP) PO SCH (10:44)
[2022-05-04 21:22] VITALS: RESP 18
[2022-05-04] MEDS: THIAMINE HCL 100 MG TABLET (FP) PO SCH (22:02)
[2022-05-04] MEDS: MELATONIN 5 MG TABLETS PO SCH (22:02)
[2022-05-05] MEDS ORDERED: chlordiazePOXIDE HCL 10 MG CAPSULE PO SCH (05:00)
[2022-05-05 06:32] VITALS: TEMP 97.3
[2022-05-05 09:21] VITALS: BP 104/78; PULSE 83
[2022-05-05] MEDS: PRENATAL VITAMINS W/ FOLIC ACID TABLET (FP) PO SCH (10:42)
[2022-05-05] MEDS: BICTEGRAV/EMTRICIT/TENOFOV (BIKTARVY) 50-200-25 MG TABLET PO SCH (10:43)
[2022-05-05] MEDS: FLUOCINONIDE 0.05% CREAM (60 GM TUBE) TP SCH (10:43)
[2022-05-06] MEDS ORDERED: chlordiazePOXIDE HCL 10 MG CAPSULE PO ONE (05:00)
== END 2022-05-05 09:30 | disposition home or self-care (01) | DRG 774 ==
LOC: YASAS 09:08 → Y6N 12:43
PROVIDERS: ADMIT Allergy & Immunology; ATTEND Surgery
PROC: HZ2ZZZZ Detoxification Services for Substance Abuse Treatment (ICD-10-PCS; principal; 2022-05-01)
DX: F10.230 Alcohol dependence with withdrawal, uncomplicated (principal); F14.20 Cocaine dependence, uncomplicated; F12.20 Cannabis dependence, uncomplicated; F17.210 Nicotine dependence, cigarettes, uncomplicated; Z21 Asymptomatic human immunodeficiency virus [HIV] infection status; D72.819 Decreased white blood cell count, unspecified; E86.0 Dehydration; L40.9 Psoriasis, unspecified; R63.4 Abnormal weight loss; Z68.1 Body mass index [BMI] 19.9 or less, adult; Z86.19 Personal history of other infectious and parasitic diseases; Z99.89 Dependence on other enabling machines and devices
CPT/HCPCS: 36415; 80053; 85027; 86593; 86780; 87811; C9803-CS; U0003; U0005

== ENCOUNTER 2022-12-16 14:03 | Inpatient (IN) | payer OTHER ==
[2022-12-16 14:37] VITALS: BMI 16.4
[2022-12-16] MEDS ORDERED: ACETAMINOPHEN 325 MG TABLET (FP) PO PRN (14:47)
[2022-12-16] MEDS ORDERED: hydrOXYzine PAMOATE 25 MG CAPSULE (FP) PO PRN (14:47)
[2022-12-16] MEDS ORDERED: BISMUTH SUBSALICYLATE 524 MG/30 ML PO PRN (14:47)
[2022-12-16] MEDS ORDERED: NICOTINE POLACRILEX 2 MG GUM BUC PRN (14:47)
[2022-12-16] MEDS ORDERED: IBUPROFEN 400 MG TABLET (FP) PO PRN (14:47)
[2022-12-16] MEDS ORDERED: ONDANSETRON *ODT* 4 MG TABLET SL PRN (14:47)
[2022-12-16] MEDS ORDERED: IBUPROFEN 600 MG TABLET (FP) PO PRN (14:47)
[2022-12-16] MEDS ORDERED: DICYCLOMINE HCL 10 MG CAPSULE PO PRN (14:47)
[2022-12-16] MEDS ORDERED: MAGNESIUM HYDROX 2400MG/30ML ORAL SUSPENSION 30 ML CUP PO PRN (14:47)
[2022-12-16] MEDS ORDERED: guaiFENesin 600 MG TABLET.ER (FP) PO PRN (14:47)
[2022-12-16] MEDS ORDERED: LOPERAMIDE HCL 2 MG CAPSULE PO PRN (14:47)
[2022-12-16] MEDS ORDERED: POLYETHYLENE GLYCOL (HEALTHYLAX) 3350 17 GM PACKET PO PRN (14:47)
[2022-12-16] MEDS ORDERED: METHOCARBAMOL 500 MG TABLET PO PRN (14:47)
[2022-12-16] MEDS ORDERED: BENZOCAINE/MENTHOL (CHLORASEPTIC ) LOZENGE MM PRN (14:47)
[2022-12-16] MEDS ORDERED: MAG HYDROX/AL HYDROX/SIMETH 30 ML UNIT-DOSE CUP PO PRN (14:47)
[2022-12-16] MEDS ORDERED: NICOTINE 14 MG/24 HOURS TOPICAL PATCH TD PRN (14:47)
[2022-12-16] MEDS ORDERED: BENZONATATE 200 MG CAPSULE PO PRN (14:47)
[2022-12-16] MEDS: LORazepam 2 MG TABLET PO SCH ×2 (18:56→23:06)
[2022-12-16] MEDS: MELATONIN 5 MG TABLETS PO SCH (23:06)
[2022-12-16] MEDS: THIAMINE HCL 100 MG TABLET (FP) PO SCH (23:07)
[2022-12-17] MEDS: LORazepam 2 MG TABLET PO SCH ×4 (05:44→23:22)
[2022-12-17] MEDS: LORazepam 1 MG TABLET PO PRN ×2 (05:44→22:30)
[2022-12-17] MEDS: PRENATAL VITAMINS W/ FOLIC ACID TABLET (FP) PO SCH (10:35)
[2022-12-17 12:07] LABS: HEMATOCRIT 33.3 % (35.4-49); HEMOGLOBIN 11.3 GM/dL (11.7-16.9); MCH 31.6 pg (25.7-33.7); MCHC 33.9 g/dl (32.0-35.9); MEAN CELL VOLUME 93.2 fl (80-96); MEAN PLT VOLUME 8.3 fl (7.5-11.1); PLATELET COUNT 233 10^3/uL (134-434); RBC 3.57 M/mm3 (4.00-5.60); WHITE BLOOD COUNT 3.5 K/mm3 (4.0-10.0)
[2022-12-17 12:12] LABS: ALBUMIN 2.8 g/dl (3.4-5.0); CALCIUM 9.2 mg/dL (8.5-10.1)
[2022-12-17 12:13] LABS: BLOOD UREA NITROGEN 7.7 mg/dL (7-18)
[2022-12-17 12:15] LABS: CREATININE 0.6 mg/dL (0.55-1.3)
[2022-12-17 12:16] LABS: TOT PROT 6.6 g/dl (6.4-8.2)
[2022-12-17 12:17] LABS: BILIRUBIN,TOTAL 0.5 mg/dL (0.2-1)
[2022-12-17] MEDS: LACTULOSE 20 GM/30 ML UDC (FOR ORAL USE ONLY) PO SCH ×2 (14:26→22:29)
[2022-12-17] MEDS: MELATONIN 5 MG TABLETS PO SCH (22:29)
[2022-12-17] MEDS: THIAMINE HCL 100 MG TABLET (FP) PO SCH (22:29)
[2022-12-18] MEDS: LORazepam 1 MG TABLET PO SCH ×4 (06:00→22:26)
[2022-12-18] MEDS: LACTULOSE 20 GM/30 ML UDC (FOR ORAL USE ONLY) PO SCH ×3 (06:01→22:26)
[2022-12-18] MEDS: PRENATAL VITAMINS W/ FOLIC ACID TABLET (FP) PO SCH (11:08)
[2022-12-18] MEDS: MELATONIN 5 MG TABLETS PO SCH (22:26)
[2022-12-18] MEDS: THIAMINE HCL 100 MG TABLET (FP) PO SCH (22:26)
[2022-12-19] MEDS ORDERED: LORazepam 0.5 MG TABLET PO PRN
[2022-12-19] MEDS: LORazepam 0.5 MG TABLET PO SCH ×4 (05:22→22:18)
[2022-12-19] MEDS: LACTULOSE 20 GM/30 ML UDC (FOR ORAL USE ONLY) PO SCH ×3 (05:23→22:18)
[2022-12-19] MEDS: PRENATAL VITAMINS W/ FOLIC ACID TABLET (FP) PO SCH (10:30)
[2022-12-19] MEDS: MELATONIN 5 MG TABLETS PO SCH (22:18)
[2022-12-19] MEDS: THIAMINE HCL 100 MG TABLET (FP) PO SCH (22:18)
[2022-12-20] MEDS ORDERED: LORazepam 0.5 MG TABLET PO ONE (05:00)
[2022-12-20] MEDS: LACTULOSE 20 GM/30 ML UDC (FOR ORAL USE ONLY) PO SCH (05:36)
[2022-12-20 05:50] VITALS: BP 92/56; PULSE 80; RESP 17; TEMP 97.3
[2022-12-20] MEDS: PRENATAL VITAMINS W/ FOLIC ACID TABLET (FP) PO SCH (11:01)
== END 2022-12-20 10:55 | disposition home or self-care (01) | DRG 774 ==
LOC: YASAS 14:03 → Y6N 15:16
PROVIDERS: ADMIT Allergy & Immunology; ATTEND Surgery
PROC: HZ2ZZZZ Detoxification Services for Substance Abuse Treatment (ICD-10-PCS; principal; 2022-12-16)
DX: F10.230 Alcohol dependence with withdrawal, uncomplicated (principal); F14.20 Cocaine dependence, uncomplicated; F12.20 Cannabis dependence, uncomplicated; F17.210 Nicotine dependence, cigarettes, uncomplicated; Z21 Asymptomatic human immunodeficiency virus [HIV] infection status; R79.89 Other specified abnormal findings of blood chemistry; R63.4 Abnormal weight loss; Z68.1 Body mass index [BMI] 19.9 or less, adult; Z99.89 Dependence on other enabling machines and devices; Z86.19 Personal history of other infectious and parasitic diseases
CPT/HCPCS: 36415; 80053; 82140; 85027; 86593; 86780; 87811; C9803-CS; U0003; U0005

== ENCOUNTER 2022-12-31 10:20 | Inpatient (IN) | payer OTHER ==
[2022-12-31] MEDS ORDERED: ONDANSETRON *ODT* 4 MG TABLET SL PRN (12:18)
[2022-12-31] MEDS ORDERED: NALOXONE HCL 0.4 MG/ML VIAL IM PRN (12:18)
[2022-12-31] MEDS ORDERED: POLYETHYLENE GLYCOL (HEALTHYLAX) 3350 17 GM PACKET PO PRN (12:18)
[2022-12-31] MEDS ORDERED: METHOCARBAMOL 500 MG TABLET PO PRN (12:18)
[2022-12-31] MEDS ORDERED: NALOXONE HCL (KLOXXADO) 8 MG SPRAY NS PRN (12:18)
[2022-12-31] MEDS ORDERED: IBUPROFEN 400 MG TABLET (FP) PO PRN (12:18)
[2022-12-31] MEDS ORDERED: LOPERAMIDE HCL 2 MG CAPSULE PO PRN (12:18)
[2022-12-31] MEDS ORDERED: DICYCLOMINE HCL 10 MG CAPSULE PO PRN (12:18)
[2022-12-31] MEDS ORDERED: hydrOXYzine PAMOATE 25 MG CAPSULE (FP) PO PRN (12:18)
[2022-12-31] MEDS ORDERED: MAG HYDROX/AL HYDROX/SIMETH 30 ML UNIT-DOSE CUP PO PRN (12:18)
[2022-12-31] MEDS ORDERED: IBUPROFEN 600 MG TABLET (FP) PO PRN (12:18)
[2022-12-31] MEDS ORDERED: NICOTINE 10 MG CARTRIDGE (INHALER) IH PRN (12:18)
[2022-12-31] MEDS ORDERED: BENZONATATE 200 MG CAPSULE PO PRN (12:18)
[2022-12-31] MEDS ORDERED: COLLOIDAL OATMEAL 1 BAR EACH TP PRN (12:18)
[2022-12-31] MEDS ORDERED: AMMONIUM LACTATE 12% LOTION 225 GM BOTTLE TP PRN (12:18)
[2022-12-31] MEDS ORDERED: BENZOCAINE/MENTHOL (CHLORASEPTIC ) LOZENGE MM PRN (12:18)
[2022-12-31] MEDS ORDERED: BISMUTH SUBSALICYLATE 524 MG/30 ML PO PRN (12:18)
[2022-12-31] MEDS ORDERED: MAGNESIUM HYDROX 2400MG/30ML ORAL SUSPENSION 30 ML CUP PO PRN (12:18)
[2022-12-31] MEDS ORDERED: ACETAMINOPHEN 325 MG TABLET (FP) PO PRN (12:18)
[2022-12-31] MEDS ORDERED: guaiFENesin 600 MG TABLET.ER (FP) PO PRN (12:18)
[2022-12-31] MEDS ORDERED: NICOTINE POLACRILEX 2 MG GUM BUC PRN (12:18)
[2022-12-31 13:26] VITALS: BMI 18.0
[2022-12-31] MEDS: PRENATAL VITAMINS W/ FOLIC ACID TABLET (FP) PO SCH (14:26)
[2022-12-31 15:35] LABS: HEMATOCRIT 32.5 % (35.4-49); MCH 32.1 pg (25.7-33.7); MCHC 33.9 g/dl (32.0-35.9); MEAN CELL VOLUME 94.7 fl (80-96); MEAN PLT VOLUME 7.7 fl (7.5-11.1); PLATELET COUNT 280 10^3/uL (134-434); RBC 3.43 M/mm3 (4.00-5.60); RDW 18.8 % (11.9-15.9)
[2022-12-31 16:29] LABS: POTASSIUM 3.7 mmol/L (3.5-5.1)
[2022-12-31 16:30] LABS: CALCIUM 9.3 mg/dL (8.5-10.1)
[2022-12-31 16:31] LABS: ALBUMIN 2.8 g/dl (3.4-5.0); BLOOD UREA NITROGEN 6.7 mg/dL (7-18)
[2022-12-31 16:34] LABS: CREATININE 0.5 mg/dL (0.55-1.3)
[2022-12-31 16:36] LABS: BILIRUBIN,TOTAL 0.6 mg/dL (0.2-1); TOT PROT 6.8 g/dl (6.4-8.2)
[2022-12-31] MEDS: MELATONIN 5 MG TABLETS PO SCH (22:58)
[2022-12-31] MEDS: THIAMINE HCL 100 MG TABLET (FP) PO SCH (22:58)
[2023-01-01] MEDS: PRENATAL VITAMINS W/ FOLIC ACID TABLET (FP) PO SCH (11:00)
[2023-01-01] MEDS: LACTULOSE 20 GM/30 ML UDC (FOR ORAL USE ONLY) PO SCH ×2 (15:13→22:52)
[2023-01-01] MEDS: THIAMINE HCL 100 MG TABLET (FP) PO SCH (22:52)
[2023-01-01] MEDS: MELATONIN 5 MG TABLETS PO SCH (22:52)
[2023-01-02] MEDS: LACTULOSE 20 GM/30 ML UDC (FOR ORAL USE ONLY) PO SCH ×4 (05:45→22:32)
[2023-01-02] MEDS: PRENATAL VITAMINS W/ FOLIC ACID TABLET (FP) PO SCH (10:14)
[2023-01-02] MEDS: MELATONIN 5 MG TABLETS PO SCH (22:32)
[2023-01-02] MEDS: THIAMINE HCL 100 MG TABLET (FP) PO SCH (22:32)
[2023-01-03] MEDS: LACTULOSE 20 GM/30 ML UDC (FOR ORAL USE ONLY) PO SCH (06:40)
[2023-01-03 09:30] VITALS: BP 101/66; PULSE 88; RESP 16; TEMP 98
[2023-01-03] MEDS: PRENATAL VITAMINS W/ FOLIC ACID TABLET (FP) PO SCH (10:43)
== END 2023-01-03 12:19 | disposition other institution (70) | DRG 775 ==
LOC: YASAS 10:20 → UNDOADMIN 13:03 → Y3N 13:03
PROVIDERS: ADMIT Allergy & Immunology; ATTEND Surgery
PROC: HZ2ZZZZ Detoxification Services for Substance Abuse Treatment (ICD-10-PCS; principal; 2022-12-31)
DX: F10.230 Alcohol dependence with withdrawal, uncomplicated (principal); F12.20 Cannabis dependence, uncomplicated; F17.210 Nicotine dependence, cigarettes, uncomplicated; Z21 Asymptomatic human immunodeficiency virus [HIV] infection status; E72.20 Disorder of urea cycle metabolism, unspecified; Z91.148 Patient's other noncompliance with medication regimen for other reason; R63.4 Abnormal weight loss; Z68.1 Body mass index [BMI] 19.9 or less, adult; Z86.19 Personal history of other infectious and parasitic diseases
CPT/HCPCS: 36415; 80053; 82140; 85027; 86593; 86780; C9803-CS; U0003; U0005

== ENCOUNTER 2023-09-18 10:41 | Inpatient (IN) | payer OTHER ==
[2023-09-18 11:29] VITALS: TEMP 97.7; BMI 17.5
[2023-09-18] MEDS ORDERED: IBUPROFEN 400 MG TABLET (FP) PO PRN (14:21)
[2023-09-18] MEDS ORDERED: guaiFENesin 600 MG TABLET.ER (FP) PO PRN (14:21)
[2023-09-18] MEDS ORDERED: LOPERAMIDE HCL 2 MG CAPSULE PO PRN (14:21)
[2023-09-18] MEDS ORDERED: ACETAMINOPHEN 325 MG TABLET (FP) PO PRN (14:21)
[2023-09-18] MEDS ORDERED: BISACODYL 5 MG TABLET.DR (FP) PO PRN (14:21)
[2023-09-18] MEDS ORDERED: MAG HYDROX/AL HYDROX/SIMETH 30 ML UNIT-DOSE CUP PO PRN (14:21)
[2023-09-18] MEDS ORDERED: MELATONIN 5 MG TABLETS PO PRN (14:21)
[2023-09-18] MEDS ORDERED: POLYETHYLENE GLYCOL (HEALTHYLAX) 3350 17 GM PACKET PO PRN (14:21)
[2023-09-18] MEDS ORDERED: P-EPHED 60MG/TRIPROLIDI 2.5MG TABLET PO PRN (14:21)
[2023-09-18] MEDS ORDERED: DOCUSATE SODIUM 100 MG CAPSULE (FP) PO PRN (14:21)
[2023-09-18] MEDS ORDERED: BENZOCAINE/MENTHOL (CHLORASEPTIC ) LOZENGE MM PRN (14:21)
[2023-09-18] MEDS ORDERED: MAGNESIUM HYDROX 2400MG/30ML ORAL SUSPENSION 30 ML CUP PO PRN (14:21)
[2023-09-18] MEDS ORDERED: BENZONATATE 200 MG CAPSULE PO PRN (14:21)
[2023-09-18] MEDS ORDERED: IBUPROFEN 600 MG TABLET (FP) PO PRN (14:21)
[2023-09-18 15:58] VITALS: RESP 16
[2023-09-18] MEDS ORDERED: TUBERCULIN PPD 5 TU/0.1ML VIAL ID ONE ×2 (17:24→17:38)
[2023-09-18] MEDS ORDERED: TUBERCULIN PPD 5 TU/0.1ML SYRINGE (IN PATIENT USE ONLY) ID ONE (18:23)
[2023-09-18] MEDS: THIAMINE HCL 100 MG TABLET (FP) PO SCH (21:45)
[2023-09-19] MEDS: PRENATAL VITAMINS W/ FOLIC ACID TABLET (FP) PO SCH (10:16)
[2023-09-19] MEDS ORDERED: TUBERCULIN PPD 5 TU/0.1ML VIAL ID ONE ×2 (14:58→14:59)
[2023-09-19 15:18] LABS: PH,URINE 6.5 (5.0-8.0); URINE APPEARANCE CLEAR; URINE BILIRUBIN NEGATIVE (NEGATIVE); URINE COLOR YELLOW; URINE GLUCOSE (UA) NEGATIVE (NEGATIVE); URINE KETONE NEGATIVE (NEGATIVE); URINE LEUK ESTERASE NEGATIVE (NEGATIVE); URINE NITRITE NEGATIVE (NEGATIVE); URINE PROTEIN NEGATIVE (NEGATIVE)
[2023-09-19] MEDS: THIAMINE HCL 100 MG TABLET (FP) PO SCH (21:30)
[2023-09-20 09:10] VITALS: BP 94/64; PULSE 90
[2023-09-20] MEDS: PRENATAL VITAMINS W/ FOLIC ACID TABLET (FP) PO SCH (10:32)
== END 2023-09-20 10:30 | disposition left against medical advice (07) | DRG 770 ==
LOC: YASAS 10:41 → Y3E 15:09
PROVIDERS: ADMIT Allergy & Immunology; ATTEND Psychiatry & Neurology Pain Medicine
PROC: HZ2ZZZZ Detoxification Services for Substance Abuse Treatment (ICD-10-PCS; principal; 2023-09-18)
DX: F10.20 Alcohol dependence, uncomplicated (principal); F14.20 Cocaine dependence, uncomplicated; F17.210 Nicotine dependence, cigarettes, uncomplicated; F32.A Depression, unspecified; Z21 Asymptomatic human immunodeficiency virus [HIV] infection status; F91.8 Other conduct disorders; Z91.199 Patient's noncompliance with other medical treatment and regimen due to unspecified reason; Z86.19 Personal history of other infectious and parasitic diseases; Z99.89 Dependence on other enabling machines and devices
CPT/HCPCS: 0241U-QW; 81003; 87811; 93005; 93010